=== PATIENT | male | born 1990 | race Caucasian/White ===

== ENCOUNTER 2022-11-14 13:32 | Emergency (ER) | payer MEDICARE ==
[2022-11-14] MEDS ORDERED: Sodium Chloride 0.9% 1,000 ML IV ONE (16:18)
[2022-11-14] MEDS ORDERED: Ketorolac 30 MG/ML SDV IVPUSH ONE (16:18)
[2022-11-14] MEDS ORDERED: Ondansetron 4 MG/2 ML SDV IVPUSH ONE (16:18)
[2022-11-14 17:25] LABS: BLOOD UREA NITROGEN,BUN 16 mg/dL (7.0-18.0); CARBON DIOXIDE,CO2 29.3 mmol/L (21.0-32.0); CHLORIDE,CL 105 mmol/L (98-107); GLUCOSE RANDOM 107 mg/dL (74-106); SODIUM,NA 140 mmol/L (136-148)
[2022-11-14 17:26] LABS: ESTIMATED GFR 91 mL/min (>60)
== END 2022-11-14 18:21 | disposition left against medical advice (07) ==
LOC: MW.ED 13:32
DX: R53.83 Other fatigue (principal); Z88.0 Allergy status to penicillin; Z88.4 Allergy status to anesthetic agent; Z88.8 Allergy status to other drugs, medicaments and biological substances
CPT/HCPCS: 36415; 71045; 80053; 80305; 80307; 81003; 83605; 83735; 84443; 85025; 86308; 87040; 87651; 96361; 96374; 96375; 99284; J1885; J2405; J7030